=== PATIENT | male | born 1950 | race Caucasian/White ===

== ENCOUNTER 2019-04-21 18:43 | Emergency (ER) | payer OTHER ==
[~2019-04-21] VITALS: Ht 165.1 cm; Wt 130.6 kg
[2019-04-21 20:07] LABS: ABSOLUTE BASOPHILS 0.1 thou/uL (0.0-0.2); ABSOLUTE EOSINOPHILS 0.1 thou/uL (0.0-0.7); ABSOLUTE MONOCYTES 0.4 thou/uL (0.0-1.2); ABSOLUTE NEUTROPHILS 4.6 thou/uL (1.6-8.1); BASOPHILS 1.3 %; EOSINOPHILS 0.9 %; HEMATOCRIT 44.3 % (42.0-52.0); HEMOGLOBIN 15.2 gm/dL (14.0-18.0); LYMPHOCYTES 28.1 %; MCH 30.4 pg (26.0-34.0); MCHC 34.4 g/dL (28.0-37.0); MCV 88.5 fL (80.0-100.0); MONOCYTES 5.8 %; MPV 9.7 fl. (7.2-11.1); NUCLEATED RBCS 0 /100WBC; PLATELET COUNT* 142 thou/uL (150-400); POLYS 63.9 %; RBC 5.01 mil/uL (4.50-6.00); RDW-CV 14.5 % (10.5-14.5); WBC 7.1 thou/uL (4.0-11.0)
[2019-04-21] MEDS ORDERED: KEFLEX500 M1 PO (20:13)
[2019-04-21 20:16] LABS: APTT 26.5 Seconds (25.0-31.3)
[2019-04-21 20:22] VITALS: BP 156/89
== END 2019-04-21 20:23 | disposition home or self-care (01) ==
LOC: M.ERS 18:43
PROVIDERS: Nurse Practitioner Family
DX: R04.0 Epistaxis (principal); I10 Essential (primary) hypertension; E11.9 Type 2 diabetes mellitus without complications; J45.909 Unspecified asthma, uncomplicated; G20 Parkinson's disease